=== PATIENT | female | born 1970 | race Caucasian/White ===

== ENCOUNTER 2017-09-26 14:03 | Emergency (ER) | payer BC ==
[2017-09-26 14:26] VITALS: BP 116/54; BMI 25.7
--- NOTE | 2017-09-26 15:43 | DR.GENAD ---
HPI - PCP Primary Care Physician: NEENA STAFFORD - HPI Comment HPI Comment: WORSE TODAY. NO FEVER. HAVING BM BUT WITH DISCOMFORT. - Complaint/Symptoms Chief Complaint Doctors Comments: HEMORRHOID IN RESTAL AREA TIMES 3 DAYS. Chief Complaint:: PT C/O LG HEMEROID AND THAT SHE DOES NOT WANT PAIN MEDS ONLY A CREAM.. Self Treatment fo Chief Complaint: PT C/O MOTRIN AND COLD WASH CLOTH NOT WORKING .. - Nurses notes reviewed Nurses Notes Review: Yes - Source History Provided: Patient - Mode of Arrival Mode of Arrival: Ambulatory - Timing Onset of Chief Complaint: 09/22/17 Came on: Suddenly - Duration Duration: Constant Duration: Days - Severity Severity: Moderate PMH - PMH Past Medical History: Yes Past Medical History: Anxiety Past Surgical History: No Surgical History: Cholecystectomy - Family History History of Family Medical Conditions: No - Social History Does patient currently use any type of tobacco product: Yes Have you used tobacco products in the last 12 months: Yes Type of Tobacco Use: Cigarettes How many years tobacco product used: 23 Does any household member use tobacco: No Alcohol Use: None Do you use any recreational Drugs:: No Lives With: Family Lives Where: Home - infectious screening In the last 2 months have you had wt loss of >10#?: NO Have you had fever, night sweats or hemotysis?: No Have you traveled outside the country in the last 6 months?: No Isolation: Standard ROS - Review of Systems Constitutional: No Symptoms Reported Eyes: No Symptoms Reported ENTM: No Symptoms Reported Respiratoy: No Symptoms Reported Cardiovascular: No Symptoms Reported Gastrointestinal/Abdominal: Other (HEMORRHOID WITH PAIN.) Genitourinary: No Symptoms Reported Neurological: No Symptoms Reported Musculoskeletal: No Symptoms Reported Integumentary: No Symptoms Reported Hematologic/Lymphatic: No Symptoms Reported Endocrine: No Symptoms Reported All Other Systems: Reviewed and Negative PE - Vital Signs Vitals: Temperature 98.1 F Pulse Rate 92 Respiratory Rate 20 Blood Pressure 116/54 O2 Sat by Pulse Oximetry 96 - General Limitations: No Limitations General Appearance: Alert - Head Head Exam: Normal Inspection - Eyes Eye exam: Normal Appearance - ENT ENT Exam: Normal External Ear Exam External Ear Exam: Normal External Inspection TM/Canal Exam: Bilateral Normal Nose Exam: Normal Nose Exam Mouth Exam: Normal Inspection Throat Exam: Normal Inspection - Neck Neck Exam: Trachea Midline - Chest Chest Inspection: Symmetric Chest Wall Rise - Respiratory Respiratory Exam: Normal Lung Sounds Bilat Respiratory Exam: Bilateral Clear to Auscultation - Cardiovascular Cardiovascular Exam: Regular Rate, Normal Rhythm, Normal Heart Sounds - Abdominal Exam Abdominal Exam: Normal Bowel Sounds, Soft. negative: Tenderness - Extremities Extremities Exam: Normal Inspection - Back Back Exam: Normal Inspection - Neurologic Neurological Exam: Alert, Oriented X3 - Psychiatric Psychiatric Exam: Normal Affect - Skin Skin Exam: Normal Color MDM - Differential Diagnosis Differential Diagnosis: RECTAQL HEMORRHOID, RECTAL PAIN Course - Treatment Treatment: SEE ORDERS. - Education/Counseling Education/Counseling: Patient, Education Educated On: Diagnosis - Diagnosis Discharge Problem: Hemorrhoids Qualifiers: Hemorrhoid type: second degree Qualified Code(s): K64.1 - Second degree hemorrhoids - Discharge Plan Disposition: 01 HOME, SELF-CARE Condition: Stable Prescriptions: Hydrocodone-Acet 5 mg/325 mg [Sprakers 5/325 mg Tab] 1 tab PO Q6H PRN #12 tab PRN Reason: Pain Hydrocortisone Supp 25 mg [Anucort-Hc Supp] 25 mg RECTAL BID PRN #24 supp PRN Reason: Hemmorhoid Itching/Discomfort - Follow ups/Referrals Follow ups/Referrals: NEENA STAFFORD [Primary Care Provider] - 3 days - Instructions Instructions: Hemorrhoids, [id number] Additional Instructions: RETURN TO ED IF WORSE.
== END 2017-09-26 15:53 | disposition home or self-care (01) ==
LOC: ER 14:03
DX: K64.1 Second degree hemorrhoids (principal)
CPT/HCPCS: 99281; 99282